=== PATIENT | male | born 1960 | race Caucasian/White ===

== ENCOUNTER → 2019-09-01 | Day surgery (SDC) | payer OTHER ==
[~2019-09-01] MED LIST: IV RINGERS SOLUTION,LACTATED 1,000 ML IV SCH; MIDAZOLAM HCL PF 2 MG/2 ML VIAL. IV ONE; PROPOFOL 20 ML IV ONE
[2019-09-01 08:35] VITALS: BP 113/63
--- NOTE | 2019-09-02 15:07 | PATHOLOGY ---
[facility] Accession Number: [id number] . 01 Material submitted: . colon - SIGMOID POLYP BIOPSY. Modifiers: sigmoid . 01 Clinical history: . CRC screen . 02 Diagnosis: Colon biopsy, sigmoid colon polyp: - Hyperplastic polyp. . (JPM:galdino; 09/02/2019) QMS 09/02/2019 0849 Local . 02 Comment: There are no adenomatous changes or evidence of malignancy. . 02 Electronically signed: . Hussein Fox MD, Pathologist NPI- [id number] . 01 Gross description: . Received in formalin labeled "Dopheide, Keith, sigmoid polyp," and additionally labeled on the requisition as "BX," is a single segment of prasad soft tissue measuring 0.5 cm in maximum dimension. The specimen is entirely submitted in cassette A1. (TSD; 09/01/2019) TOB/TOB 09/01/2019 1747 Local . 02 Pathologist provided ICD-10: K63.5 . 02 CPT . 649569 Specimen Comment: A courtesy copy of this report has been sent to [phone] Specimen Comment: Report sent to Performed at: 01 [facility] [address] [facility] [address], [place] [id number] MD Jhonathan Swenson MD Phone: [phone] Performed at: 02 [facility] [address] [place], [place] [id number] MD Hussein Fox MD Phone: [phone]
== END ==
LOC: SURG 06:23
PROVIDERS: ATTEND Emergency Medicine
DX: Z12.11 Encounter for screening for malignant neoplasm of colon (principal); K63.5 Polyp of colon; K64.9 Unspecified hemorrhoids; J45.909 Unspecified asthma, uncomplicated; Z80.0 Family history of malignant neoplasm of digestive organs; Z98.890 Other specified postprocedural states; Z79.899 Other long term (current) drug therapy; Z72.89 Other problems related to lifestyle
CPT/HCPCS: 45380; 88305; J2704; J7120